=== PATIENT | female | born 1985 | race Two or more races ===

== ENCOUNTER 2019-02-25 12:07 | Emergency (ER) | payer BC ==
[~2019-02-25] VITALS: Ht 152.4 cm; Wt 64.9 kg
[2019-02-25 12:21] VITALS: BP 102/68
[2019-02-25] MEDS ORDERED: HYDROcodone/Acetamin 5/325 tab ORAL ONE (12:30)
[2019-02-25] MEDS ORDERED: Ketorolac 30mg Inj IM ONE (12:30)
--- NOTE | 2019-02-25 13:39 | Emergency Room Report ---
History of Present Illness General Chief Complaint: Laceration Source: Patient (Saul Hollins) Present Illness HPI 33-year-old female presents ED for evaluation. Laceration to the left index finger. 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 Multiple lacerations to the tip of the left index finger. Tetanus is up-to-date. Denies any other injuries. Pain is dull, 7 out of 10, nonradiating. No other aggravating relieving factors. Denies any other associated symptoms (Doorn Callaway MD) Allergies: Coded Allergies: No Known Allergies (Unverified , 02/25/19) Patient History Past Medical History: none Past Surgical History: none Pertinent Family History: none Social History: Denies: smoking, alcohol use, drug use Now: No Immunizations: UTD Reviewed Nursing Documentation: PMH: Agreed; PSxH: Agreed (Doron Callaway MD) Nursing Documentation-PMH Past Medical History: No Stated History (Saul Hollins) Review of Systems All Other Systems: negative except mentioned in HPI (Doron Callaway MD) Physical Exam Vital Signs Date Time Temp Pulse Resp B/P (MAP) Pulse Ox O2 Delivery O2 Flow Rate FiO2 02/25/19 12:21 98.8 66 17 102/68 100 Room Air (Saul Hollins) Sp02 EP Interpretation: reviewed, normal General Appearance: no apparent distress, alert, GCS 15, non-toxic Head: normocephalic Eyes: bilateral eye normal inspection, bilateral eye PERRL ENT: normal ENT inspection Neck: normal inspection Respiratory: normal inspection Cardiovascular #1: normal inspection Gastrointestinal: normal inspection Rectal: deferred Genitourinary: no CVA tenderness Musculoskeletal: back normal, normal range of motion, gait/station normal, tender Neurologic: alert, motor strength/tone normal, oriented x3, sensory intact, responsive, speech normal Psychiatric: normal inspection Skin: laceration - multiple 1cm lacerations to distal aspect L index finger. part of nail removed Lymphatic: normal inspection (Doron Callaway MD) Procedures Laceration/Wound Repair Laceration/Wound Repair : Consent: Verbal Wound Location: upper extremity - L index finger Wound's Depth, Shape: linear Wound Explored: clean Betadine Prep?: Yes Anesthesia: 1% Lidocaine Wound Debrided: minimal Wound Repaired With: sutures Suture Size/Type: 5:0, proline Layer Closure?: No Sterile Dressing Applied?: Yes Splint Applied?: No Sling Applied?: No Patient Tolerated: Well Complications: None (Doron Callaway MD) Medical Decision Making Diagnostic Impression: Primary Impression: Finger laceration Qualified Codes: S61.311A - Laceration without foreign body of left index finger with damage to nail, initial encounter ER Course Hospital Course 33 yo F presents with laceration L index finger from hydroelectric production technician blade Clinical course Patient placed on stretcher. After initial history and physical I ordered xray of L hand. Xray show no evidence of FB or fx. Anesthesia provided with lidocaine. Laceration repaired w/o complication. bacitracin/dressing applied. Discussed findings with patient. Will discharge to home. Safe for discharge for close outpatient follow-up. Return to ED in 10 to 12 days for suture removal. Diagnosis - finger laceration Stable and discharged to home with prescription for bacitracin. wound Care instructions given. Followup with PMD in 10-12 days for suture removal. Return to ED if any signs of infection develop (Doron Callaway MD) Other X-Ray Diagnostic Results Other X-Ray Diagnostic Results : X-Ray ordered: L hand # of Views/Limited Vs Complete: 3 View Indication: Pain EP Interpretation: Yes Interpretation: no dislocation, no soft tissue swelling, no fractures Impression: No acute disease Electronically Signed by: Electronically signed by Doron Callaway MD (Doron Callaway MD) Last Vital Signs Date Time Temp Pulse Resp B/P (MAP) Pulse Ox O2 Delivery O2 Flow Rate FiO2 02/25/19 12:21 98.8 66 17 102/68 (79) 100 Room Air (Saul Hollins) Status: improved (Doron Callaway MD) Disposition: HOME, SELF-CARE Condition: Stable Scripts Acetaminophen* (TYLENOL EXTRA STRENGTH*) 500 Mg Tablet 500 MG ORAL Q8H PRN for Prn Headache/Temp > 101, #30 TAB 0 Refills Prov: Doron Callaway MD 02/25/19 Bacitracin (Bacitracin) 28.4 Gm Oint...g. 1 APPLIC TOPIC THREE TIMES A DAY, #28.4 GM Prov: Doron Callaway MD 02/25/19 Referrals: JANETH JERONIMO (PCP) Patient Instructions: Laceration Care, Adult Additional Instructions: Take medication as directed. Follow-up with your primary care provider.sutures to be removed in 7 to 10 days. Avoid strenuous physical activity with the affected site. If worsening symptoms return to the emergency room Saul Hollins Feb 25, 2019 13:39 Doron Callaway MD Feb 26, 2019 15:20
[2019-02-25] MEDS ORDERED: BACITRACIN15 GM TOPIC (13:47)
[2019-02-25] MEDS ORDERED: TYLENOL EXTRA500 MG ORAL (13:47)
[2019-02-25] MEDS ORDERED: Bacitracin Oint UD TOPIC ONE (14:00)
[2019-02-25 14:13] VITALS: BP 112/75
[2019-02-25] MEDS ORDERED: Bacitracin Oint 15gm Tube TOPIC SCH (14:15)
== END 2019-02-25 14:13 | disposition home or self-care (01) ==
LOC: EMR 12:27
DX: S61.311A Laceration without foreign body of left index finger with damage to nail, initial encounter (principal); W26.8XXA Contact with other sharp object(s), not elsewhere classified, initial encounter; Y93.89 Activity, other specified; Y92.9 Unspecified place or not applicable
CPT/HCPCS: 12001; 73130; 96372; 99283; J1885